=== PATIENT | female | born 1975 | race Caucasian/White ===

== ENCOUNTER 2016-11-19 07:42 | Emergency (ER) | payer SELFPAY | END 2016-11-19 09:04 | disposition home or self-care (01) | LOC: NAV ERS 07:42 | DX: R56.9 Unspecified convulsions (principal); F41.9 Anxiety disorder, unspecified; F17.210 Nicotine dependence, cigarettes, uncomplicated; Z79.899 Other long term (current) drug therapy | CPT/HCPCS: 99284 ==

== ENCOUNTER 2017-01-10 17:35 | Emergency (ER) | payer SELFPAY ==
[2017-01-10] MEDS ORDERED: Ketorolac Tromethamine 60 MG/2 ML VIAL ONE (17:41)
[2017-01-10] MEDS ORDERED: Morphine Sulfate 2 MG/ML SYRINGE ONE (17:41)
[2017-01-10] MEDS ORDERED: Cyclobenzaprine 10 MG TAB ONE (17:41)
[2017-01-10] MEDS ORDERED: Fentanyl 100 MCG/2 ML VIAL ONE (17:42)
--- NOTE | 2017-01-10 19:04 | RAD ---
FRONTAL RADIOGRAPH CHEST FOUR VIEWS LEFT RIBS 01/10/17 HISTORY: Fall, pain. FINDINGS: Frontal radiograph chest demonstrates no pneumothorax or pleural fluid and no focal consolidation or alveolar edema. Heart and mediastinal contours appear within normal limits. Four views of the left ribs demonstrate no displaced fracture of the left ribs. Cholecystectomy clip s are present. There is debris within the stomach. IMPRESSION: No acute findings. POS: [facility]
== END 2017-01-10 19:15 | disposition home or self-care (01) ==
LOC: NAV ERS 17:35
DX: S20.212A Contusion of left front wall of thorax, initial encounter (principal); F41.9 Anxiety disorder, unspecified; F17.210 Nicotine dependence, cigarettes, uncomplicated; G40.909 Epilepsy, unspecified, not intractable, without status epilepticus; Z79.899 Other long term (current) drug therapy; W01.198A Fall on same level from slipping, tripping and stumbling with subsequent striking against other object, initial encounter
CPT/HCPCS: 96372; J1885; J2270; J3010

== ENCOUNTER 2017-05-24 08:45 | Emergency (ER) | payer SELFPAY ==
[2017-05-24] MEDS ORDERED: HYDROcodone/Acetaminophen 10/325 mg Tablet ONE (09:45)
--- NOTE | 2017-05-24 10:46 | RAD ---
PA AND LATERAL CHEST: HISTORY: Chest and rib pain. FINDINGS: Heart size and mediastinum are within normal limits. The lungs are clear of any focal infiltrates. No signs of pneumothorax. No rib fractures identified. IMPRESSION: No active intrathoracic disease. POS: [facility]
--- NOTE | 2017-05-24 11:41 | RAD ---
PA CHEST AND LEFT RIBS 3 VIEWS: HISTORY: Rib pain. FINDINGS: There are no signs of fracture or other rib abnormalities. No evidence of pneumothorax. IMPRESSION: Negative left ribs. POS: [facility]
== END 2017-05-24 10:35 | disposition home or self-care (01) ==
LOC: NAV ERS 08:45
DX: S22.39XA Fracture of one rib, unspecified side, initial encounter for closed fracture (principal); S40.022A Contusion of left upper arm, initial encounter; S70.11XA Contusion of right thigh, initial encounter; G40.909 Epilepsy, unspecified, not intractable, without status epilepticus; F41.9 Anxiety disorder, unspecified; F17.210 Nicotine dependence, cigarettes, uncomplicated; W17.89XA Other fall from one level to another, initial encounter
CPT/HCPCS: 71020

== ENCOUNTER 2020-12-27 15:54 | Emergency (ER) | payer SELFPAY ==
[2020-12-27] MEDS ORDERED: HYDROcodone/Acetaminophen 5/325 mg Tablet ONE (16:18)
[2020-12-27] MEDS ORDERED: cefTRIAXone\\ROCEPHIN 1 GM VIAL ONE (16:19)
[2020-12-27] MEDS ORDERED: Bacitracin 1 PK ONE (16:19)
[2020-12-27] MEDS ORDERED: Ketorolac Tromethamine 30 MG/ML VIAL ONE (16:19)
[2020-12-27] MEDS ORDERED: Boostrix 0.5 ML (Tdap) VIAL ONE (16:19)
[2020-12-27] MEDS ORDERED: Lidocaine 1% (PF) 30 ML VIAL ONE (16:19)
== END 2020-12-27 17:12 | disposition home or self-care (01) ==
LOC: NAV ERS 15:54
DX: S91.311A Laceration without foreign body, right foot, initial encounter (principal); L03.115 Cellulitis of right lower limb; F17.210 Nicotine dependence, cigarettes, uncomplicated; W45.8XXA Other foreign body or object entering through skin, initial encounter
CPT/HCPCS: 90471; 90715; 96372; J0696; J1885; J2001

== ENCOUNTER 2021-03-30 19:57 | Emergency (ER) | payer SELFPAY ==
[2021-03-30 20:34] LABS: Hemoglobin 14.2 g/dL (12.0-16.0); Mean Corpuscular HGB CONC 31.5 g/dL (32.0-36.0); Mean Corpuscular Hemoglobin 30.7 pg (27.0-31.0); Mean Corpuscular Volume 97.3 fL (78.0-98.0); Platelet Count 217 thou/uL (130-400); Red Blood Cell (RBC) Count 4.62 mill/uL (4.20-5.40); White Blood Cell (WBC) Count 3.9 thou/uL (4.8-10.8)
[2021-03-30 20:42] LABS: ALT (SGPT) 32 U/L (8-55); AST (SGOT) 40 U/L (5-34); Albumin 3.8 g/dL (3.5-5.0); Alkaline Phosphatase 89 U/L (40-110); Anion Gap 14 mmol/L (10-20); BUN (Urea Nitrogen) 12 mg/dL (7.0-18.7); Bilirubin, Total 0.1 mg/dL (0.2-1.2); Calc. Creatinine Clearance 0 mL/min (70-130); Calcium 8.1 mg/dL (7.8-10.44); Carbon Dioxide 18 mmol/L (22-29); Chloride 108 mmol/L (98-107); Globulin 2.7 g/dL (2.4-3.5); Glucose 143 mg/dL (70-105); Potassium 3.6 mmol/L (3.5-5.1); Protein, Total 6.5 g/dL (6.0-8.3); Sodium 136 mmol/L (136-145)
[2021-03-30 20:45] LABS: Band 10 % (5-11); Eosinophils 4 % (0-10); Lymphocytes 51 % (21-51); MDiff Complete? YES; Monocytes 5 % (0-10); Myelocyte 1 % (0-0); Neutrophil 29 % (42-75); Platelet Morphology Comment Appears Adequate; RBC Morphology Normal
[2021-03-30] MEDS ORDERED: Sodium Chloride 0.9% 1,000 ML ONE (20:47)
[2021-03-30] MEDS ORDERED: Ondansetron PF 4 MG/2 ML Vial ONE (20:56)
[2021-03-30] MEDS ORDERED: Ketorolac Tromethamine 30 MG/ML VIAL ONE (20:56)
[2021-03-31 18:20] LABS: SARS-CoV-2 PCR by NAA DETECTED (NotDetected)
== END 2021-03-30 22:17 | disposition home or self-care (01) ==
LOC: NAV ERS 19:57
DX: U07.1 COVID-19 (principal); J06.9 Acute upper respiratory infection, unspecified; J40 Bronchitis, not specified as acute or chronic; G40.909 Epilepsy, unspecified, not intractable, without status epilepticus; F17.210 Nicotine dependence, cigarettes, uncomplicated
CPT/HCPCS: 71045; 80053; 84484; 85025; 93005; 96374; 96375; J1885; J2405; J7050; U0003; U0005

== ENCOUNTER 2022-09-12 09:50 | Emergency (ER) | payer SELFPAY ==
[2022-09-12 10:47] LABS: ALT (SGPT) 29 U/L (8-55); AST (SGOT) 32 U/L (5-34); Albumin 3.9 g/dL (3.5-5.0); Alkaline Phosphatase 91 U/L (40-110); Anion Gap 13 mmol/L (10-20); BUN (Urea Nitrogen) 14 mg/dL (7.0-18.7); Bilirubin, Total 0.5 mg/dL (0.2-1.2); Calc. Creatinine Clearance 0 mL/min (70-130); Calcium 8.4 mg/dL (7.8-10.44); Carbon Dioxide 22 mmol/L (22-29); Chloride 107 mmol/L (98-107); Estimated GFR 91; Globulin 2.7 g/dL (2.4-3.5); Glucose 98 mg/dL (70-105); Lipase 58 U/L (8-78); Potassium 3.7 mmol/L (3.5-5.1); Protein, Total 6.6 g/dL (6.0-8.3); Sodium 138 mmol/L (136-145)
[2022-09-12] MEDS ORDERED: Metoclopramide HCl 10 MG/2 ML VIAL ONE (10:50)
[2022-09-12] MEDS ORDERED: Sodium Chloride 0.9% 1,000 ML ONE (10:50)
[2022-09-12] MEDS ORDERED: Pantoprazole 40 MG VIAL ONE (10:50)
[2022-09-12 10:52] LABS: #Eosinphils 0.2 thou/uL (0.0-0.7); #Lymphocytes 0.4 thou/uL (1.20-3.40); #Monocytes 0.2 thou/uL (0.11-0.59); %Basophils 0.6 % (0.0-1.0); %Eosinophils 3.1 % (0.0-10.0); %Monocytes 3.7 % (0.0-10.0); %Neutrophils 85.6 % (42.0-75.0); Hemoglobin 14.8 g/dL (12.0-16.0); Mean Corpuscular Hemoglobin 31.3 pg (27.0-31.0); Mean Platelet Volume 6.9 fL (7.4-10.4); Platelet Count 297 10x3/uL (130-400); RBC Distribution Width 11.5 % (11.5-14.5); Red Blood Cell (RBC) Count 4.71 mill/uL (4.20-5.40); White Blood Cell (WBC) Count 5.9 10x3/uL (4.8-10.8)
[2022-09-12 12:05] LABS: Bilirubin Negative (Negative); Blood, Urine Negative (Negative); Clarity Clear (Clear); Glucose, Urine (Dipstick) Negative (Negative); Ketone, Urine Negative (Negative); Leukocyte Negative (Negative); Nitrite Negative (Negative); Protein, Urine (Dipstick) Negative (Neg-Trace); Specific Gravity, Urine 1.025 (1.005-1.030)
[2022-09-12 12:16] LABS: Amphetamine Detected (NotDetected); Cocaine Metabolite Screen Not Detected (NotDetected); Methamphetamine Detected (NotDetected); Opiate Screen Not Detected (NotDetected); Phencyclidine (PCP) Not Detected (NotDetected); THC/Cannabinoid Screen Detected (NotDetected)
[2022-09-12 12:17] LABS: Barbiturates Screen Not Detected (NotDetected); Benzodiazepine Screen Detected (NotDetected); Medtox Control Line Valid? VALID (VALID); Methadone Not Detected (NotDetected); Oxycodone Screen Not Detected (NotDetected); Tricyclic Screen Detected (NotDetected)
[2022-09-12] MEDS ORDERED: Acetaminophen 500 MG TAB ONE (12:18)
== END 2022-09-12 12:41 | disposition home or self-care (01) ==
LOC: NAV ERS 09:50
DX: E86.0 Dehydration (principal); R11.2 Nausea with vomiting, unspecified; F17.210 Nicotine dependence, cigarettes, uncomplicated
CPT/HCPCS: 80053; 80306; 81003; 82550; 83690; 85025; 93005; 96361; 96365; 96375; C9113; J2765; J7050

== ENCOUNTER 2025-06-13 02:43 | Emergency (ER) | payer SELFPAY ==
[2025-06-13] MEDS ORDERED: predniSONE 20 MG TAB ONE (03:04)
== END 2025-06-13 03:18 | disposition home or self-care (01) ==
LOC: NAV ERS 02:43
DX: J02.9 Acute pharyngitis, unspecified (principal); I10 Essential (primary) hypertension; F17.290 Nicotine dependence, other tobacco product, uncomplicated
CPT/HCPCS: 93005; 99283; J7512